=== PATIENT | male | born 1950 | race Hispanic/Latino ===

== ENCOUNTER 2021-07-10 09:36 | Inpatient (IN) | payer MEDICARE ==
[~2021-07-10] VITALS: Ht 170.2 cm; Wt 63.5 kg
[2021-07-10 10:00] LABS: BASOPHILS % (AUTO) 0.5 % (0.0-5.0); EOSINOPHILS % (AUTO) 0.2 % (0.0-8.0); LYMPHOCYTES % (AUTO) 9.2 % (21.0-51.0); MEAN CORPUSCULAR HEMOGLOBIN 30.3 pg (27.0-33.0); MEAN CORPUSCULAR HGB CONC 33.6 g/dL (32.0-36.0); MEAN CORPUSCULAR VOLUME 90.3 fL (79-99); MONOCYTES % (AUTO) 16.3 % (3.0-13.0); NEUTROPHILS % (AUTO) 73.5 % (40.0-77.0); PLATELET COUNT (AUTO) 176 K/uL (130-400); RED BLOOD CELL COUNT(AUTO) 4.65 MIL/uL (4.50-6.20); RED CELL DISTRIBUTION WIDTH 12.6 % (11.0-15.5); WHITE BLOOD COUNT (AUTO) 6.6 K/uL (4.8-10.8)
[2021-07-10 10:21] LABS: ALBUMIN 4.6 g/dL (3.5-5.0); BILIRUBIN,TOTAL 0.4 mg/dL (0.2-1.0); CREATININE 1.7 mg/dL (0.5-1.5); INR 1.01 (0.85-1.15); POTASSIUM 4.5 mmol/L (3.5-5.1); TOTAL PROTEIN, SERUM 7.8 g/dL (6.0-8.3)
[2021-07-10 10:22] LABS: PARTIAL THROMBOPLASTIN TIME 30.6 SEC (26.3-35.5)
[2021-07-10 10:24] LABS: B-TYPE NATRIURETIC PEPTIDE 53 pg/mL (0-100)
[2021-07-10 12:48] VITALS: BP 178/96
[2021-07-10 14:12] VITALS: BP 166/85
[2021-07-10] MEDS ORDERED: MORPHINE 2 MG SYG IVP PRN (15:30)
[2021-07-10] MEDS ORDERED: AMLODIPINE 5 MG TAB PO ONE (15:30)
[2021-07-10] MEDS ORDERED: NITROGLYCERIN 0.4 MG SL TAB SL PRN (15:30)
[2021-07-10] MEDS ORDERED: ATOR20TA65 PO (15:41)
[2021-07-10] MEDS ORDERED: LOSA25TA41 PO (15:42)
[2021-07-10] MEDS ORDERED: ASPI-1012 PO (15:43)
[2021-07-10 16:01] LABS: HEMOGLOBIN A1C 5.8 % (4.0-6.0)
[2021-07-10 16:08] VITALS: BP 151/76
[2021-07-10 16:08] LABS: CHOLESTEROL 106 mg/dL (<200); HDL CHOLESTEROL 45 mg/dL (29-71); LDL DIRECT 51 mg/dL (0-99); TRIGLYCERIDES 39 mg/dL (30-200)
[2021-07-10] MEDS: 0.9%NACL 1000ML 1,000 ML IV SCH (17:00)
[2021-07-10] MEDS ORDERED: AMLODIPINE 5 MG TAB ONE (17:46)
[2021-07-10 18:05] VITALS: BP 173/91
[2021-07-10] MEDS ORDERED: ISOSORBIDE MONO 30MG SR TAB PO SCH (18:30)
[2021-07-10] MEDS ORDERED: 0.9% NACL 500ML IV.SOLN 500 ML IV SCH (18:30)
[2021-07-10] MEDS ORDERED: HEPARIN 25,000 UNITS/250ML D5W 250 ML IV SCH (18:30)
[2021-07-10 18:49] LABS: CREATININE,URINE RANDOM 14 mg/dL (30-135); SODIUM,URINE RANDOM 69 mmol/l (40-220)
[2021-07-10 18:54] LABS: AMPHET/METH SCREEN,URINE NEGATIVE (NEGATIVE); BARBITURATE SCREEN, URINE NEGATIVE (NEGATIVE); BENZODIAZEPINES SCREEN,URINE NEGATIVE (NEGATIVE); CANNABINOID SCREEN,URINE NEGATIVE (NEGATIVE); COCAINE SCREEN,URINE NEGATIVE (NEGATIVE); OPIATE SCREEN,URINE NEGATIVE (NEGATIVE); PHENCYCLIDINE SCREEN,URINE NEGATIVE (NEGATIVE)
[2021-07-10 19:11] LABS: BASOPHILS % (AUTO) 0.4 % (0.0-5.0); EOSINOPHILS % (AUTO) 0.6 % (0.0-8.0); HEMATOCRIT 39.7 % (42-54); MEAN CORPUSCULAR HEMOGLOBIN 30.3 pg (27.0-33.0); MEAN CORPUSCULAR HGB CONC 33.8 g/dL (32.0-36.0); MEAN CORPUSCULAR VOLUME 89.8 fL (79-99); MONOCYTES % (AUTO) 13.3 % (3.0-13.0); NEUTROPHILS % (AUTO) 74.5 % (40.0-77.0); PLATELET COUNT (AUTO) 150 K/uL (130-400); RED BLOOD CELL COUNT(AUTO) 4.42 MIL/uL (4.50-6.20); RED CELL DISTRIBUTION WIDTH 12.5 % (11.0-15.5); WHITE BLOOD COUNT (AUTO) 5.3 K/uL (4.8-10.8)
[2021-07-10] MEDS: METOPROLOL TARTRATE 25 MG TAB PO SCH (20:41)
[2021-07-10] MEDS: ATORVASTATIN 40 MG TABLET PO SCH (20:41)
[2021-07-10] MEDS ORDERED: METOPROLOL TARTRATE 25 MG TAB PO SCH (21:00)
[2021-07-10] MEDS ORDERED: HEPARIN 5,000 UNIT VIAL IV ONE (21:30)
[2021-07-10 22:08] VITALS: BP 120/67
[2021-07-11] VITALS (7 sets, daily range): BP systolic 93–149; BP diastolic 57–80
[2021-07-11 04:56] LABS: BASOPHILS % (AUTO) 0.4 % (0.0-5.0); EOSINOPHILS % (AUTO) 1.6 % (0.0-8.0); HEMATOCRIT 38.1 % (42-54); LYMPHOCYTES % (AUTO) 13.4 % (21.0-51.0); MEAN CORPUSCULAR HEMOGLOBIN 30.9 pg (27.0-33.0); MEAN CORPUSCULAR HGB CONC 33.6 g/dL (32.0-36.0); MONOCYTES % (AUTO) 14.3 % (3.0-13.0); NEUTROPHILS % (AUTO) 70.1 % (40.0-77.0); PLATELET COUNT (AUTO) 155 K/uL (130-400); RED BLOOD CELL COUNT(AUTO) 4.14 MIL/uL (4.50-6.20); RED CELL DISTRIBUTION WIDTH 12.8 % (11.0-15.5); WHITE BLOOD COUNT (AUTO) 5.5 K/uL (4.8-10.8)
[2021-07-11 05:08] LABS: INR 1.08 (0.85-1.15); PROTHROMBIN TIME 11.7 SEC (9.6-11.6)
[2021-07-11 05:13] LABS: CREATININE 1.5 mg/dL (0.5-1.5); POTASSIUM 4.4 mmol/L (3.5-5.1)
[2021-07-11 05:38] LABS: PARTIAL THROMBOPLASTIN TIME > 139.0 SEC (26.3-35.5)
[2021-07-11] MEDS: ASPIRIN 81MG CHEW TAB PO SCH (08:44)
[2021-07-11] MEDS: ISOSORBIDE MONO 30MG SR TAB PO SCH (08:45)
[2021-07-11] MEDS: METOPROLOL TARTRATE 25 MG TAB PO SCH ×2 (08:45→16:52)
[2021-07-11] MEDS: 0.9%NACL 1000ML 1,000 ML IV SCH (08:45)
[2021-07-11] MEDS ORDERED: AMLODIPINE 5 MG TAB PO SCH (09:00)
[2021-07-11] MEDS ORDERED: PHARMACY COMMUNICATION MISC SCH (11:00)
[2021-07-11] MEDS ORDERED: CLOPIDOGREL 300MG TAB PO SCH (11:00)
[2021-07-11 12:13] LABS: INR 1.05 (0.85-1.15); PROTHROMBIN TIME 11.4 SEC (9.6-11.6)
[2021-07-11 12:14] LABS: PARTIAL THROMBOPLASTIN TIME 80.9 SEC (26.3-35.5)
[2021-07-11] MEDS: ATORVASTATIN 40 MG TABLET PO SCH ×2 (20:27→20:32)
[2021-07-12 04:19] VITALS: BP 140/85
[2021-07-12 06:52] VITALS: BP 158/94
[2021-07-12 08:00] VITALS: BP 158/94
[2021-07-12] MEDS ORDERED: PANTOPRAZOLE 40 MG TAB DR PO SCH (09:00)
[2021-07-12] MEDS: ISOSORBIDE MONO 30MG SR TAB PO SCH (09:00)
[2021-07-12] MEDS ORDERED: CLOPIDOGREL 75MG TAB PO SCH (09:00)
[2021-07-12] MEDS: ASPIRIN 81MG CHEW TAB PO SCH (09:41)
[2021-07-12] MEDS ORDERED: ASPI-1005 PO (18:44)
[2021-07-12] MEDS ORDERED: Isosorbide Mono 30MG Sr Tab PO (18:44)
[2021-07-12] MEDS ORDERED: METO-391 PO (18:44)
[2021-07-12] MEDS ORDERED: Nitroglycerin 0.4MG Sl Tab SL (18:44)
[2021-07-12] MEDS ORDERED: PANT40TA PO (18:44)
[2021-07-12] MEDS ORDERED: ATOR40TA69 PO (18:44)
[2021-07-12] MEDS ORDERED: CLOP75TA14 PO (18:44)
== END 2021-07-12 19:55 | disposition home or self-care (01) | DRG 302 ==
LOC: EDH 09:36 → EDHIP 15:25 → OBSVTOIN 15:25 → 4AH 07-11 11:29
PROVIDERS: ADMIT Internal Medicine; ATTEND Internal Medicine
DX: I25.110 Atherosclerotic heart disease of native coronary artery with unstable angina pectoris (principal); U07.1 COVID-19; E78.5 Hyperlipidemia, unspecified; I10 Essential (primary) hypertension; E78.00 Pure hypercholesterolemia, unspecified; Z78.9 Other specified health status; Z79.02 Long term (current) use of antithrombotics/antiplatelets; Z79.82 Long term (current) use of aspirin; Z79.899 Other long term (current) drug therapy; Z83.3 Family history of diabetes mellitus; Z82.49 Family history of ischemic heart disease and other diseases of the circulatory system
CPT/HCPCS: 36415; 70450; 71045; 76705; 76770; 80048; 80053; 80061; 80305; 82550; 82570; 82728; 82948; 83036; 83615; 83735; 83880; 84145; 84300; 84443; 84484; 85025; 85378; 85610; 85730; 87635; 93005; 93306; 93356; G0378; G0481; J1644; J7030